=== PATIENT | female | born 1985 | race Two or more races ===

== ENCOUNTER 2016-08-13 19:18 | Inpatient (IN) | payer OTHER ==
[2016-08-13 20:33] VITALS: BMI 26.6
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
[2016-08-13] MEDS ORDERED: P-EPHED 60MG/TRIPROLIDI 2.5MG TABLET PO PRN (20:59)
[2016-08-13] MEDS ORDERED: chlordiazePOXIDE HCL 25 MG CAPSULE PO ONE (20:59)
[2016-08-13] MEDS ORDERED: ACETAMINOPHEN 325 MG TABLET (FP) PO PRN (20:59)
[2016-08-13] MEDS ORDERED: IBUPROFEN 400 MG TABLET (FP) PO PRN (20:59)
[2016-08-13] MEDS ORDERED: MENTHOL/PHENOL 1 EACH UD MM PRN (20:59)
[2016-08-13] MEDS ORDERED: diphenhydrAMINE HCL 50 MG CAPSULE PO PRN (20:59)
[2016-08-13] MEDS ORDERED: LOPERAMIDE HCL 2 MG CAPSULE PO PRN (20:59)
[2016-08-13] MEDS ORDERED: hydrOXYzine PAMOATE 25 MG CAPSULE (FP) PO PRN (20:59)
[2016-08-13] MEDS ORDERED: MAGNESIUM CITRATE 300 ML BOTTLE PO PRN (20:59)
[2016-08-13] MEDS ORDERED: chlordiazePOXIDE HCL 25 MG CAPSULE PO PRN (20:59)
[2016-08-13] MEDS ORDERED: guaiFENesin/D-METHORPHAN HB 10 ML UNIT-DOSE CUPS PO PRN (20:59)
[2016-08-13] MEDS ORDERED: MAGNESIUM HYDROX 2400MG/30ML ORAL SUSPENSION 30 ML CUP PO PRN (20:59)
[2016-08-13] MEDS ORDERED: MAG HYDROX/AL HYDROX/SIMETH 30 ML UNIT-DOSE CUP PO PRN (20:59)
[2016-08-13] MEDS ORDERED: ALBUTEROL SO4 6.7 GM HFA INHALER IH PRN (22:12)
[2016-08-13] MEDS: THIAMINE HCL 100 MG TABLET (FP) PO SCH (22:55)
[2016-08-13] MEDS: chlordiazePOXIDE HCL 25 MG CAPSULE PO SCH (23:36)
[2016-08-13 23:37] LABS: URINE APPEARANCE SLCLOUDY; URINE BILIRUBIN NEGATIVE (NEGATIVE); URINE COLOR YELLOW; URINE GLUCOSE (UA) NEGATIVE (NEGATIVE); URINE KETONE NEGATIVE (NEGATIVE); URINE LEUK ESTERASE NEGATIVE (NEGATIVE); URINE NITRITE NEGATIVE (NEGATIVE); URINE PROTEIN NEGATIVE (NEGATIVE); URINE UROBILINOGEN NEGATIVE E.U./dl (0.2-1.0)
[2016-08-13] MEDS: NICOTINE 21 MG/24 HOURS TOPICAL PATCH TD SCH (23:37)
[2016-08-13 23:42] LABS: URINE BLOOD 1+ (NEGATIVE)
[2016-08-13 23:44] LABS: URINE MUCUS RARE; URINE RBC 1 /hpf (0-3); URINE WBC 7 /hpf (3-5)
[2016-08-14] MEDS: chlordiazePOXIDE HCL 25 MG CAPSULE PO SCH ×3 (06:04→18:00)
[2016-08-14] MEDS ORDERED: PRENATAL VITAMINS W/ FOLIC ACID TABLET (FP) PO SCH (10:00)
[2016-08-14 10:30] LABS: MCH 28.3 pg (25.7-33.7); MCHC 33.1 g/dl (32.0-36.0); MEAN CELL VOLUME 85.6 fl (80-96); MEAN PLT VOLUME 8.5 fl (7.5-11.1); PLATELET COUNT 208 K/MM3 (134-434); RDW 15.9 % (11.6-15.6); WHITE BLOOD COUNT 6.2 K/mm3 (4.0-10.0)
[2016-08-14] MEDS: NICOTINE 21 MG/24 HOURS TOPICAL PATCH TD SCH (10:34)
[2016-08-14] MEDS ORDERED: hydrOXYzine PAMOATE 25 MG CAPSULE (FP) PO SCH (11:16)
[2016-08-14 11:37] LABS: ALBUMIN 3.4 g/dl (3.4-5.0); ALK PHOS 92 U/L (45-117); ANION GAP 8 (8-16); BILIRUBIN,TOTAL 0.3 mg/dL (0.2-1.0); CALCIUM 8.3 mg/dL (8.5-10.1); CO2 26 mmol/L (21-32); COCKROFT - GAULT 115.6595; CREATININE 0.8 mg/dL (0.55-1.02); GLUCOSE,RANDOM 91 mg/dL (74-106); SGOT/AST 16 U/L (15-37); SGPT/ALT 16 U/L (12-78); TOT PROT 6.4 g/dl (6.4-8.2)
--- NOTE | 2016-08-14 13:11 | CONSULT ---
[facility] Psychiatric Consult - Data Date of interview: 08/14/16 Admission source: [facility] Identifying data: This is 31 years old female with Schizophrenia, history o0f psychiatric hospitalization, intoxicated with: Alcohol, Cannabis, Cociane, Opioids Substance Abuse History: - Smoking Cessation. Smoking history: Current every day smoker. Have you smoked in the past 12 months: Yes. Aproximately how many cigarettes per day: 10. Cigars Per Day: 0. Hx Chewing Tobacco Use: No. Initiated information on smoking cessation: Yes. 'Breaking Loose' booklet given : 08/13/16. - Substance & Tx. History. Hx Alcohol Use: Yes. Hx Substance Use : Yes. Substance Use Type: Alcohol, Cocaine, Marijuana. Hx Substance Use Treatment: Yes (10/08 [facility] - Substances Abused. Alcohol. Route: Oral. Frequency: Daily. Amount used: 1PINT OF BARCARDI/40 OZ OF BEER. Age of first use: 13. Date of Last Use: 08/13/16. Cocaine. Route: Inhalation. Frequency: Daily (40$). Amount used: 40$. Age of first use: 30. Date of Last Use: 08/10/16. Marijuana/Hashish. Route: Smoking. Frequency: Daily. Amount used: 10$. Age of first use: 13. Date of Last Use: 08/11/16 Medical History: Asthma, Syncope history Psychiatric History: Patient reports history of nSchizophrenia with most recent psychiatric admission on 2015 at [facility], reports currently on Monthly injections of: Haldol Decanoate 75ml with most recent injection on: . Remeron 30mg po qhs Physical/Sexual Abuse/Trauma History: Denies Additional Comment: Haldol Decanoate 75ml with most recent injection on: 2016. Remeron 30mg po qhs Mental Status Exam - Mental Status Exam Alert and Oriented to: Person Cognitive Function: Fair Patient Appearance: Unkempt Mood: Anxious Affect: Appropriate Patient Behavior: Cooperative Speech Pattern: Delayed Voice Loudness: Mildly Soft/Quiet Thought Process: Circumstantial Thought Disorder: Present Hallucinations: Denies Suicidal Ideation: Denies Homicidal Ideation: Denies Insight/Judgement: Fair Sleep: Difficulty falling asleep Appetite: Fair Muscle strength/Tone: Normal Gait/Station: Normal Additional Comments: Haldol Decanoate 75ml with most recent injection on: 07/20. Remeron 30mg po qhs Psychiatric Findings - Problem List ([place] 1, 2,3) (1) Bipolar disorder Current Visit: Yes Status: Acute (2) Cannabis abuse Current Visit: No Status: Chronic (3) Cocaine dependence Current Visit: No Status: Chronic Qualifiers: Substance use status: uncomplicated Qualified Code(s): F14.20 - Cocaine dependence, uncomplicated (4) Opioid dependence with withdrawal Current Visit: No Status: Chronic (5) Paranoid schizophrenia Current Visit: Yes Status: Acute - Initial Treatment Plan Initial Treatment Plan: Haldol Decanoate 75ml with most recent injection on: . Remeron 30mg po qhs
[2016-08-14] MEDS: hydrOXYzine PAMOATE 25 MG CAPSULE (FP) PO SCH ×2 (15:14→23:36)
--- NOTE | 2016-08-14 17:34 | PN ---
[facility] CIWA - CIWA Score Nausea/Vomitin-No Nausea/No Vomiting Muscle Tremors: 3 Anxiety: 4-Mod. Anxious/Guarded Agitation: 3 Paroxysmal Sweats: 2 Orientation: 0-Oriented Tacttile Disturbances: 3-Moderate Itch/Numb/Burn Auditory Disturbances: 1-Very Mild Visual Disturbances: 2-Mild Sensitivity Headache: 0-None Present CIWA-Ar Total Score: 18 S Progress Note (SOAP) Subjective: Tremors, Cold sensation, Fatigue. Objective: PT. A & O X 3, OBSERVED AMBULATING NO UNIT. 08/14/16 17:33 Vital Signs Temperature 96.4 F L 08/14/16 14:35 Pulse Rate 81 08/14/16 14:35 Respiratory Rate 16 08/14/16 14:35 Blood Pressure 129/60 08/14/16 14:35 O2 Sat by Pulse Oximetry (%) Laboratory Last Values WBC 6.2 K/mm3 (4.0-10.0) 08/14/16 07:50 RBC 4.12 M/mm3 (3.60-5.2) 08/14/16 07:50 Hgb 11.7 GM/dL (10.7-15.3) 08/14/16 07:50 Hct 35.2 % (32.4-45.2) 08/14/16 07:50 MCV 85.6 fl (80-96) 08/14/16 07:50 MCHC 33.1 g/dl (32.0-36.0) 08/14/16 07:50 RDW 15.9 % (11.6-15.6) H 08/14/16 07:50 Plt Count 208 K/MM3 (134-434) 08/14/16 07:50 MPV 8.5 fl (7.5-11.1) 08/14/16 07:50 Sodium 138 mmol/L (136-145) 08/14/16 07:50 Potassium 4.3 mmol/L (3.5-5.1) 08/14/16 07:50 Chloride 104 mmol/L (98-107) 08/14/16 07:50 Carbon Dioxide 26 mmol/L (21-32) 08/14/16 07:50 Anion Gap 8 (8-16) 08/14/16 07:50 BUN 11 mg/dL (7-18) D 08/14/16 07:50 Creatinine 0.8 mg/dL (0.55-1.02) 08/14/16 07:50 Creat Clearance w eGFR > 60 (>60) 08/14/16 07:50 Random Glucose 91 mg/dL (74-106) 08/14/16 07:50 Calcium 8.3 mg/dL (8.5-10.1) L 08/14/16 07:50 Total Bilirubin 0.3 mg/dL (0.2-1.0) D 08/14/16 07:50 AST 16 U/L (15-37) D 08/14/16 07:50 ALT 16 U/L (12-78) D 08/14/16 07:50 Alkaline Phosphatase 92 U/L (45-117) 08/14/16 07:50 Total Protein 6.4 g/dl (6.4-8.2) 08/14/16 07:50 Albumin 3.4 g/dl (3.4-5.0) 08/14/16 07:50 Urine Color Yellow 08/13/16 23:25 Urine Appearance Slcloudy 08/13/16 23:25 Urine pH 7.0 (5.0-8.0) 08/13/16 23:25 Ur Specific [place] 1.024 (1.001-1.035) 08/13/16 23:25 Urine Protein Negative (NEGATIVE) 08/13/16 23:25 Urine Glucose (UA) Negative (NEGATIVE) 08/13/16 23:25 Urine Ketones Negative (NEGATIVE) 08/13/16 23:25 Urine Blood 1+ (NEGATIVE) H 08/13/16 23:25 Urine Nitrite Negative (NEGATIVE) 08/13/16 23:25 Urine Bilirubin Negative (NEGATIVE) 08/13/16 23:25 Urine Urobilinogen Negative E.U./dl (0.2-1.0) 08/13/16 23:25 Ur Leukocyte Esterase Negative (NEGATIVE) 08/13/16 23:25 Urine RBC 1 /hpf (0-3) 08/13/16 23:25 Urine WBC 7 /hpf (3-5) 08/13/16 23:25 Ur Epithelial Cells Moderate /hpf (FEW) 08/13/16 23:25 Urine Mucus Rare 08/13/16 23:25 RPR Titer Nonreactive (NONREACTIVE) 08/14/16 07:50 LABS NOTED. Assessment: 08/14/16 17:34 WITHDRAWAL SYMPTOMS. Plan: CONTINUE DETOX. ADVISED PATIENT TO FOLLOW-UP WITH UTILIZATION MANAGEMENT MANAGER / REHAB MEDICAL PROVIDER AFTER DISCHARGE FROM DETOX FOR GENERAL MEDICAL ASSESSMENT AND FOR ABNORMAL ADMISSION LAB VALUES.
[2016-08-14] MEDS ORDERED: MIRTAZAPINE 30 MG TABLET (FP) PO SCH (22:00)
[2016-08-14] MEDS: THIAMINE HCL 100 MG TABLET (FP) PO SCH (23:36)
[2016-08-15] MEDS: chlordiazePOXIDE HCL 25 MG CAPSULE PO SCH ×2 (00:24→06:05)
[2016-08-15] MEDS: hydrOXYzine PAMOATE 25 MG CAPSULE (FP) PO SCH (06:05)
[2016-08-15 10:48] VITALS: BP 111/74; PULSE 89; TEMP 98.2
--- NOTE | 2016-08-15 11:15 | DS ---
[facility] Detox Discharge Summary Admission Date: 08/13/16 Discharge Date: 08/15/16 - History Present History: Alcohol Dependence Pertinent Past History: Schizophrenia Asthma - Physical Exam Results Vital Signs: Vital Signs Temperature 98.2 F 08/15/16 10:47 Pulse Rate 89 08/15/16 10:47 Respiratory Rate 16 08/15/16 10:47 Blood Pressure 111/74 08/15/16 10:47 O2 Sat by Pulse Oximetry (%) Pertinent Admission Physical Exam Findings: Withdrawal sx. Laboratory Tests 08/13/16 08/14/16 08/14/16 23:25 07:50 07:50 WBC 6.2 RBC 4.12 Hgb 11.7 Hct 35.2 MCV 85.6 MCHC 33.1 RDW 15.9 H Plt Count 208 MPV 8.5 Sodium 138 Potassium 4.3 Chloride 104 Carbon Dioxide 26 Anion Gap 8 BUN 11 D Creatinine 0.8 Creat Clearance w eGFR > 60 Random Glucose 91 Calcium 8.3 L Total Bilirubin 0.3 D AST 16 D ALT 16 D Alkaline Phosphatase 92 Total Protein 6.4 Albumin 3.4 Urine Color Yellow Urine Appearance Slcloudy Urine pH 7.0 Ur Specific [place] 1.024 Urine Protein Negative Urine Glucose (UA) Negative Urine Ketones Negative Urine Blood 1+ H Urine Nitrite Negative Urine Bilirubin Negative Urine Urobilinogen Negative Ur Leukocyte Esterase Negative Urine RBC 1 Urine WBC 7 Ur Epithelial Cells Moderate Urine Mucus Rare RPR Titer 08/14/16 07:50 WBC RBC Hgb Hct MCV MCHC RDW Plt Count MPV Sodium Potassium Chloride Carbon Dioxide Anion Gap BUN Creatinine Creat Clearance w eGFR Random Glucose Calcium Total Bilirubin AST ALT Alkaline Phosphatase Total Protein Albumin Urine Color Urine Appearance Urine pH Ur Specific [place] Urine Protein Urine Glucose (UA) Urine Ketones Urine Blood Urine Nitrite Urine Bilirubin Urine Urobilinogen Ur Leukocyte Esterase Urine RBC Urine WBC Ur Epithelial Cells Urine Mucus RPR Titer Nonreactive labs noted - Treatment Patient has Accepted a Rehab Referral to: [facility] [place] counseling services - Medication Discharge Medications: Ambulatory Orders Haloperidol Decanoate [Haldol Decanoate 50] 75 mg IM MONTHLY 09/30/15 Hydroxyzine HCl [Atarax -] 25 mg PO TID 08/13/16 Hydroxyzine Pamoate [Vistaril -] 50 mg PO Q4H #90 cap 08/14/16 Mirtazapine [Remeron -] 30 mg PO HS #30 tablet 08/14/16 - Diagnosis (1) Alcohol dependence with uncomplicated withdrawal Current Visit: Yes Status: Acute (2) Asthma Current Visit: Yes Status: Acute Qualifiers: Asthma severity: mild intermittent Asthma complication type: uncomplicated Qualified Code(s): J45.20 - Mild intermittent asthma, uncomplicated (3) Bipolar disorder Current Visit: Yes Status: Acute (4) Cocaine dependence Current Visit: Yes Status: Chronic Qualifiers: Substance use status: uncomplicated Qualified Code(s): F14.20 - Cocaine dependence, uncomplicated (5) Schizophrenia Current Visit: Yes Status: Chronic Qualifiers: Schizophrenia type: unspecified Qualified Code(s): F20.9 - Schizophrenia, unspecified - AMA Did Patient Leave Against Medical Advice: Yes
--- NOTE | 2016-08-15 12:44 | EKG ---
Test Reason : Blood Pressure : / mmHG Vent. Rate : 072 BPM Atrial Rate : 072 BPM P-R Int : 124 ms QRS Dur : 100 ms QT Int : 408 ms P-R-T Axes : 021 052 028 degrees QTc Int : 446 ms NORMAL SINUS RHYTHM INCOMPLETE RIGHT BUNDLE BRANCH BLOCK NO PREVIOUS ECGS AVAILABLE Confirmed by MÓNICA LAURENT MD ([id number]) on 08/15/2016 12:44:39 PM Referred By: Confirmed By:MÓNICA LAURENT MD
[2016-08-15] MEDS ORDERED: chlordiazePOXIDE 5 MG CAPSULE PO SCH (23:00)
[2016-08-16] MEDS ORDERED: chlordiazePOXIDE HCL 10 MG CAPSULE PO SCH (23:00)
== END 2016-08-15 10:26 | disposition left against medical advice (07) | DRG 770 ==
LOC: YASAS 19:18 → Y6N 21:18
PROVIDERS: ADMIT Internal Medicine; ATTEND Internal Medicine
PROC: HZ2ZZZZ Detoxification Services for Substance Abuse Treatment (ICD-10-PCS; principal; 2016-08-13)
DX: F10.230 Alcohol dependence with withdrawal, uncomplicated (principal); F14.20 Cocaine dependence, uncomplicated; F12.10 Cannabis abuse, uncomplicated; F17.210 Nicotine dependence, cigarettes, uncomplicated; F31.9 Bipolar disorder, unspecified; F20.9 Schizophrenia, unspecified; J45.20 Mild intermittent asthma, uncomplicated; Z91.5 Personal history of self-harm
CPT/HCPCS: 36415; 80053; 81003; 81015; 85027; 86593; 93005; 93010